=== PATIENT | female | born 1955 | race Two or more races ===

== ENCOUNTER 2025-10-19 18:05 | Emergency (ER) | payer MEDICAID, SELFPAY ==
[2025-10-19 18:46] VITALS: BP 203/108; PULSE 76; RESP 16; TEMP 37.1; O2SAT 96; BMI 27.8
--- NOTE | 2025-10-19 18:54 | EKG_ITS ---
[facility] Test Date: 2025-10-19 Pat Name: DERIK MONROE Department: Room: - Gender: Female Pathology Manager: : [id number] Requested By: Kirby Cox Order Number: [id number] Reading MD: Kirby Cox Measurements Intervals [place] Rate: 73 P: 63 MN: 182 QRS: 4 QRSD: 88 T: 73 QT: 368 QTc: 406 Interpretive Statements SINUS RHYTHM NONSPECIFIC T-WAVE ABNORMALITY No previous ECG available for comparison /store/S0/[id number]/[id number]
--- NOTE | 2025-10-19 18:54 | PD.EDRME ---
Rapid Medical Screening Exam RME Arrival date/time: 10/19/25 18:05 This is a case of 70-year-old female with history of hypertension came in in the emergency room due to blood pressure uncontrolled patient was in the clinic due to left knee pain when they checked the blood pressure noted 200/100 thus advised to sought consult in the ER patient denies any headache dizziness nausea vomiting blurring of vision denies any chest pain shortness of breath nor palpitation Chief Complaint: General Adult/Misc Complain Time Seen by Provider: 10/19/25 18:35 Vital signs: Vital Signs Temperature 98.8 F 10/19/25 18:46 Pulse Rate 76 10/19/25 18:46 Respiratory Rate 16 10/19/25 18:46 Blood Pressure 203/108 H 10/19/25 18:46 Pulse Oximetry (%) 96 10/19/25 18:46 Oxygen Delivery Method Room Air 10/19/25 18:46 Exam: Normal rate regular rhythm no murmur lungs clear breath sounds no crackles no wheezing no retraction neurological exam is normal Clinical Impression: Uncontrolled hypertension
[2025-10-19 19:27] LABS: Basophils # (Auto) 0.0 Thou/mm3 (0.0-0.2); Basophils % (Auto) 0 % (0-2.5); Eosinophils # (Auto) 0.1 Thou/mm3 (0.0-0.5); Eosinophils % (Auto) 1 % (0-10); Hematocrit 42.0 % (36.0-46.0); Hemoglobin 14.1 g/dL (12.0-16.0); Immature Granulocytes Auto 0.04 Thou/mm3 (0.00-0.00); Lymphocytes # (Auto) 2.4 Thou/mm3 (1.0-4.8); Lymphocytes % (Auto) 29 % (10-50); Mean Corpuscular HGB Conc 33.6 g/dl (31.0-37.0); Mean Corpuscular Hemoglobin 31.1 pg (25.0-35.0); Mean Corpuscular Volume 93 fL (80-100); Monocytes # (Auto) 0.4 Thou/mm3 (0.0-0.8); Monocytes % (Auto) 5 % (0-12); Neutrophils # (Auto) 5.3 Thou/mm3 (1.8-7.7); Neutrophils % (Auto) 64 % (37-80); Nucleated Red Blood Cell # 0.00 Thou/mm3 (0.00-0.00); Nucleated Red Blood Cell % 0 /100 WBC (0); Platelet Count 239 Thou/mm3 (140-440); RDW Standard Deviation 42.6 fL (36.4-46.3); Red Blood Count 4.54 Miln/mm3 (4.00-5.20); White Blood Count 8.3 Thou/mm3 (3.6-11.0)
[2025-10-19 19:28] VITALS: BP 203/108; PULSE 76
[2025-10-19 19:54] LABS: Alanine Aminotransferase 15 U/L (10-49); Albumin, Serum 5.1 gm/dL (3.4-4.8); Albumin/Globulin Ratio 1.6 (1.2-2.2); Alkaline Phosphatase 80 U/L (46-116); Anion Gap 10 (7-16); Aspartate Amino Transferase 23 U/L (0-34); BUN/Creatinine Ratio 16 Ratio (12-20); Bilirubin,Total 0.3 mg/dL (0.3-1.2); Blood Urea Nitrogen 13 mg/dL (9-23); Calcium 10.3 mg/dL (8.3-10.6); Calcium (Corrected) 10.3 mg/dL (8.5-10.1); Carbon Dioxide 27.5 mMol/L (20.0-31.0); Chloride 106 mMol/L (98-107); Creatinine (Component) 0.8 mg/dL (0.6-1.3); Estimated Creatinine Clearance 60.4 mL/min (>60); Globulin 3.1 gm/dL (2.3-3.5); Glucose 110 mg/dL (74-106); Osmolality,Calculated 286 (275-295); Potassium 4.6 mMol/L (3.4-5.1); Sodium 143 mMol/L (136-145); Total Protein 8.2 gm/dL (5.7-8.2); Troponin I 0.027 ng/mL (0.0-0.045); eGFR > 60 See Note
--- NOTE | 2025-10-19 20:17 | EDNOTE_ITS ---
ED General RME/HPI General Chief complaint: General Adult/Misc Complain Stated complaint: HIGH BP; SENT BY [facility] Time Seen by Provider: 10/19/25 18:35 Arrival date/time: 10/19/25 18:05 RME / HPI RME / HPI narrative: 10/19/25 18:05 This is a case of 70-year-old female with history of hypertension came in in the emergency room due to blood pressure uncontrolled patient was in the clinic due to left knee pain when they checked the blood pressure noted 200/100 thus advised to sought consult in the ER patient denies any headache dizziness nausea vomiting blurring of vision denies any chest pain shortness of breath nor palpitation Dr. Callahan?s Main ED Evaluation: 70yo female with a history of HTN presents to the ED after being sent over by her PCP due to her blood pressure being high. Patient's systolic blood pressure was noted to be over 200 when she was seen at her PCP's office today. She has been compliant with her antihypertensive (does not remember the name). She denies any headache, dizziness, lightheadedness, chest pain, or any other associated symptoms. NKA. Related Data Home Medications ?Medication ?Instructions ?Recorded ?Confirmed NO HX MEDS ##0 06/27/08 Allergies Allergy/AdvReac Type Severity Reaction Status Date / Time No Known Allergies Allergy Verified 10/19/25 18:08 Review of Systems Review of Systems Systems Reviewed: All systems reviewed, normal except as documented ED Exam Narrative Physical exam: Generally patient is alert and in no obvious distress, heart regular rate and rhythm, lungs clear to auscultation equal laterally, abdomen soft bowel sounds present no send nontender, neurologic exam shows no focal motor deficits. [place] Coma Scale 15. No ataxia. Course Quality Measures none Orders Category Date Time Status EKG (ED ONLY) *Do not use* NOW Care 10/19/25 18:54 Completed EKG (ED Only) Stat Exams 10/19/25 18:54 Draft CBC Stat Lab 10/19/25 19:14 Completed Comprehensive Metabolic Panel Stat Lab 10/19/25 19:14 Completed Troponin I Stat Lab 10/19/25 19:14 Completed Urinalysis Stat Lab 10/19/25 18:54 Ordered cloNIDine HCL [Catapres] Med 10/19/25 18:54 Discontinued 0.2 mg PO X1 ONE Vital Signs Vital signs: Vital Signs Temperature 98.8 F 10/19/25 18:46 Pulse Rate 76 10/19/25 18:46 Respiratory Rate 16 10/19/25 18:46 Blood Pressure 203/108 H 10/19/25 18:46 Pulse Oximetry (%) 96 10/19/25 18:46 Oxygen Delivery Method Room Air 10/19/25 18:46 Discharge Plan Plan Patient Disposition: HOME (Self Care) Prescriptions/Referrals Prescriptions/Med Rec: No Action NO HX MEDS Qty: 0 Referrals: No Primary/Family,Physician [Primary Care Provider] - In 1 week Problem List Clinical Impression: Asymptomatic hypertension Patient/Caregiver Discharge Instructions Education Materials: Hypertension Dc Additional Instructions: Call your primary care physician tomorrow for recommendations on how best to increase your blood pressure medication. Print Language: [place] Stand Alone Forms: Trixie Award Info., Patient Portal Info Letter MDM Narrative MDM hospital course (for use when minimal MDM required): Scribe Attestation: 10/19/25 - Gaby Casper am scribing for and in the presence of Dr. Callahan. Patient denies headache chest pain or shortness of breath. There is no altered level of consciousness. Patient had original blood pressure 200/100. She does have a history of hypertension. She does not know the name of the medication that she takes. This is her first visit to this hospital. She believes it to be 50 mg. It may be losartan. I am unsure however. EKG shows normal sinus rhythm at a rate of 73 without ischemic change or ectopy. I interpreted all labs. Patient has asymptomatic hypertension and is to call her primary care physician tomorrow for recommendation on how best to adjust her medication. Clinical Information Provided by: patient Medical Records reviewed [facility] Meds/Rx considered, not ordered None Labs/Rad/Tests considered, not ordered None Chronic Illness/Social Conditions Explain: Hx HTN Labs Labs: interpreted by ne Imaging Imaging interpretation: none Medication Administration(s) Medication Administration History Discontinued Medications Clonidine (Clonidine Hcl 0.1 Mg Tablet) 0.2 mg PO X1 ONE Stop: 10/19/25 18:55 Last Admin: 10/19/25 19:28 Dose: 0.2 mg Documented By: THA see above Diagnosis Differential Diagnosis ED Complaint MDM: See MDM
[2025-10-19 20:26] VITALS: BP 152/86; PULSE 68; RESP 14; TEMP 37.2; O2SAT 97
== END 2025-10-19 20:42 | disposition home or self-care (01) ==
PROVIDERS: Nurse Practitioner Family; Emergency Provider Emergency Medicine
DX: I10 Essential (primary) hypertension (principal)
CPT/HCPCS: 36415; 80053; 81001; 84484; 85025; 93005; 99283; A9270

== ENCOUNTER 2025-10-22 18:20 | Emergency (ER) | payer MEDICAID, SELFPAY ==
[2025-10-22 18:22] VITALS: BMI 28.7
[2025-10-22 18:40] VITALS: BP 219/111; BP 227/104; PULSE 65; RESP 16; TEMP 37; O2SAT 95
--- NOTE | 2025-10-22 19:48 | PD.EDRECHK ---
ED Recheck Abnl Lab Rx-RME/HPI General Chief Complaint: General Adult/Misc Complain Stated Complaint: HTN SENT BY PCP Time Seen by Provider: 10/22/25 19:04 Arrival date/time: 10/22/25 18:20 70F with history of HTN presents to ED with elevated BP. Patient was here several days ago with unremarkable cardiac and renal labs. Patient went to PCP who immediately sent them here, even though patient has no symptoms. Patient is only on losartan. Patient denies MCALLISTER, CP, dizziness, and vision changes. Limitations: no limitations Related Data Home Medications ?Medication ?Instructions ?Recorded ?Confirmed NO HX MEDS ##0 06/27/08 Allergies Allergy/AdvReac Type Severity Reaction Status Date / Time No Known Allergies Allergy Verified 10/22/25 19:40 Review of Systems Review of Systems Systems Reviewed: All systems reviewed, normal except as documented Past Medical History Past Medical History CARDIAC: Positive Hypertension; Negative Congestive Heart Failure RESPIRATORY: Negative Chronic Obstructive Pulmonary Disease (COPD) GENITOURINARY: Negative Renal Disease REPRODUCTIVE: Positive Previous Pregnancies ENDOCRINE: Negative Diabetes Mellitus Type 1 or Diabetes Mellitus Type 2 Social History SMOKING STATUS: Never smoker ED Exam General Limitations: Present no limitations General appearance: Present alert and in no apparent distress Head Head exam: Present atraumatic Neck Neck exam: Present normal inspection, full ROM and trachea midline Chest Chest inspection: Present normal inspection and symmetric chest wall rise Cardiovascular Cardiovascular exam: Present regular rate, normal rhythm and normal heart sounds Neurological Exam Neurological exam: Present alert and oriented X3 Psychiatric Psychiatric exam: Present normal affect and normal mood Skin Skin exam: Present warm, dry, intact and normal color Course Quality Measures none Orders Category Date Time Status hydrALAZINE HCL [Apresoline] Med 10/22/25 19:45 Discontinued 50 mg PO X1 ONE Vital Signs Vital signs: Vital Signs Temperature 98.6 F 10/22/25 18:40 Pulse Rate 65 10/22/25 18:40 Respiratory Rate 16 10/22/25 18:40 Blood Pressure 227/104 H 10/22/25 18:40 Pulse Oximetry (%) 95 10/22/25 18:40 Oxygen Delivery Method Room Air 10/22/25 18:40 O2 at 95% on RA and WNLs Recheck / Abnormal Lab / Rx MDM Narrative MDM Narrative:: 70F with history of HTN presents to ED with elevated BP. Patient was here several days ago with unremarkable cardiac and renal labs. Patient went to PCP who immediately sent them here, even though patient has no symptoms. Patient is only on losartan. Patient denies MCALLISTER, CP, dizziness, and vision changes. Physical exam reveals normal pupil response and EOM. Speech normal. Gait normal. RRR. Patient is afebrile, calm, and alert. Meds and residential treatment counselor given, including to find another PCP of her current one is unfit to manage her BP. Patient data External records reviewed:: [facility] previous records Clinical information provided by:: patient Social determinants that could affect healthcare access:: none Patient has the following chronic illnesses:: HTN How is presenting disease/condition affected by chronic disease/condition?: uneffected by Evaluation data The following diagnostics were reviewed and interpreted by me:: other (specify) (none) Lab and/or radiology exams considered but not ordered:: not ordered Interpretation Summary: n/a Medications / Prescriptions Medications or Prescriptions considered but not ordered:: ordered Medication administrations:: Medication Administration History Discontinued Medications Hydralazine HCl (Hydralazine Hcl 25 Mg Tablet) 50 mg PO X1 ONE Stop: 10/22/25 19:46 above Consultations Consultation(s) initiated? (list below): No Diagnosis Recheck Differential Diagnosis: encounter for medication refill, encounter for wound recheck, encounter for recheck of burn, encounter for removal of sutures, warfarin-induced coagulopathy and other (asymptomatic hypertension) Most likely diagnosis given after review of the tests above:: asymptomatic hypertension Admission Indicated Admission indicated?: not indicated Admission Request Was there a request for admission?: No Disposition Plan Disposition Plan: Discharge Discharge Attestation Discharge Attestation: The patient and all family members were given an opportunity to ask questions and understood the discharge instructions. Discharge instructions specifically effects, indications for sooner follow up or return to the emergency department, and the expected course of current diagnosis. Patient condition: Stable Discharge Plan Plan Patient Disposition: HOME (Self Care) Discharge Disposition comment: Stable Prescriptions/Referrals Prescriptions/Med Rec: No Action NO HX MEDS Qty: 0 Problem List Clinical Impression: Asymptomatic hypertension Patient/Caregiver Discharge Instructions Education Materials: ED Hypertension, Established Additional Instructions: Please follow-up with PCP within 24-48 hours and return immediately if symptoms worsen. Print Language: Yakut Stand Alone Forms: Patient Portal Info Letter LAKESHIA/RINKU Supervising Physician RODNEY Supervising Physician: Dr. Caceres
[2025-10-22 20:30] VITALS: BP 226/100; PULSE 60
== END 2025-10-22 20:41 | disposition home or self-care (01) ==
PROVIDERS: Emergency Provider Emergency Medicine; PCP Family Medicine
DX: I10 Essential (primary) hypertension (principal)
CPT/HCPCS: 99281; A9270